=== PATIENT | male | born 1970 | race Caucasian/White ===

== ENCOUNTER 2020-10-01 11:07 | Emergency (ER) | payer OTHER ==
[~2020-10-01] VITALS: Ht 167.6 cm; Wt 68.0 kg
[~2020-10-01 11:07] MED LIST: CYCL10 PO
[2020-10-01] MEDS ORDERED: AMOCLA875 PO (13:19)
== END 2020-10-01 13:21 | disposition home or self-care (01) ==
LOC: ER 11:07
DX: K11.20 Sialoadenitis, unspecified (principal); F17.210 Nicotine dependence, cigarettes, uncomplicated
CPT/HCPCS: 99282

== ENCOUNTER → 2020-12-18 | Outpatient (CLI) | payer OTHER ==
[~2020-12-18] MED LIST changes: +AMOCLA875 PO; +Ropinirole HCl0.5 MG
[2020-12-18 16:49] LABS: BASOPHILS ABSOLUTE AUTO 0.08 K/mm3 (0.00-0.23); BASOPHILS PERCENT AUTO 1 % (0-2); EOSINOPHILS ABSOLUTE AUTO 0.16 K/mm3 (0.00-0.68); EOSINOPHILS PERCENT AUTO 2 % (0-6); Hematocrit 46.8 % (37.0-53.0); Hemoglobin 15.7 g/dL (13.5-17.5); IMMATURE GRAN ABSOLUTE AUTO 0.02 K/mm3 (0.00-0.10); IMMATURE GRAN PERCENT AUTO 0 % (0-1); LYMPHOCYTES ABSOLUTE AUTO 3.87 K/mm3 (0.84-5.20); LYMPHOCYTES PERCENT AUTO 41 % (21-46); MONOCYTES ABSOLUTE AUTO 0.75 K/mm3 (0.16-1.47); MONOCYTES PERCENT AUTO 8 % (4-13); Mean Corpuscular HGB 30.2 pg (26.0-34.0); Mean Corpuscular HGB Conc 33.5 g/dL (31.5-36.5); Mean Corpuscular Volume 90 fL (80-100); Mean Platelet Volume 9.6 fL (9.1-12.4); NEUTROPHILS ABSOLUTE AUTO 4.67 K/mm3 (1.96-9.15); NEUTROPHILS PERCENT AUTO 49 % (41-73); Platelet Count 445 K/mm3 (150-400); RDW Coefficient Variation 14.6 % (11.7-14.2); RDW Standard Deviation 48.6 fL (35.1-46.3); White Blood Cell Count 9.55 K/mm3 (4.00-11.30)
[2020-12-18 17:05] LABS: Alanine Aminotransfer (ALT/SGP 53 U/L (12-78); Albumin, Blood 4.2 g/dL (3.4-5.0); Alk Phos 108 U/L (50-136); Anion Gap 6 mmol/L (6-16); Aspartate Aminotrans (AST/SGOT 23 U/L (12-37); Bilirubin, Total 0.3 mg/dL (0.1-1.0); Blood Urea Nitrogen 14 mg/dL (8-24); Bun/Creatinine Ratio 16.8 (12.0-20.0); CHOL/HDL RATIO 9.9; CO2, Blood 24 mmol/L (21-32); Calcium, Blood 9.1 mg/dL (8.5-10.1); Chloride, Blood 108 mmol/L (98-108); Cholesterol 277 mg/dL (50-200); Creatinine, Blood 0.84 mg/dL (0.60-1.20); Ferritin, Serum 185 ng/mL (26-388); Globulin, Blood 4.4 g/dL (2.2-4.0); Glomerular Filtration Rate >60 (60-); Glucose, Blood 93 mg/dL (70-99); HDL Cholesterol 28 mg/dL (>39); LDL/HDL RATIO 6.8; Low Density Lipoprotein Chol 192 mg/dL (0-110); Potassium, Blood 4.6 mmol/L (3.5-5.5); Sodium, Blood 138 mmol/L (136-145); Total Protein, Blood 8.6 g/dL (6.4-8.2); Triglycerides 287 mg/dL (30-160); Very Low Density Lipoprot Chol 57 mg/dL (6-32)
== END | disposition home or self-care (01) ==
LOC: LAB 15:10 → LAB SHORT 15:10
PROVIDERS: Registered Nurse
DX: D47.3 Essential (hemorrhagic) thrombocythemia (principal); E78.2 Mixed hyperlipidemia; R73.9 Hyperglycemia, unspecified; Z83.3 Family history of diabetes mellitus; Z83.2 Family history of diseases of the blood and blood-forming organs and certain disorders involving the immune mechanism
CPT/HCPCS: 80053; 80061; 82728; 83036; 85025; 85060

== ENCOUNTER → 2021-01-10 | Outpatient (CLI) | payer OTHER | END | disposition home or self-care (01) | LOC: LAB SHORT 16:58 → LAB 16:58 | DX: Z11.59 Encounter for screening for other viral diseases (principal); R35.1 Nocturia | CPT/HCPCS: 86803 ==

== ENCOUNTER 2021-04-28 11:34 | Day surgery (SDC) | payer OTHER ==
--- NOTE | 2021-04-28 12:26 | NUR ---
04/28/21 1226 Cecily Jacobo 1 TRY RIGHT HAND BLEW 2 TRY RIGHT HAND NO FLASH
== END 2021-04-28 13:53 | disposition home or self-care (01) ==
LOC: ORSCSDS 11:34
PROVIDERS: Internal Medicine Gastroenterology
PROC: 0DBG8ZX Excision of Left Large Intestine, Via Natural or Artificial Opening Endoscopic, Diagnostic (ICD-10-PCS; principal; 2021-04-28 13:15)
PROC: 0DBF8ZX Excision of Right Large Intestine, Via Natural or Artificial Opening Endoscopic, Diagnostic (ICD-10-PCS; principal; 2021-04-28 13:15)
PROC: 0DBB8ZX Excision of Ileum, Via Natural or Artificial Opening Endoscopic, Diagnostic (ICD-10-PCS; principal; 2021-04-28 13:15)
PROC: 0DBP8ZX Excision of Rectum, Via Natural or Artificial Opening Endoscopic, Diagnostic (ICD-10-PCS; principal; 2021-04-28 13:15)
DX: Z12.11 Encounter for screening for malignant neoplasm of colon (principal); K63.3 Ulcer of intestine; K64.8 Other hemorrhoids; F41.8 Other specified anxiety disorders; K52.9 Noninfective gastroenteritis and colitis, unspecified; K62.1 Rectal polyp; K21.9 Gastro-esophageal reflux disease without esophagitis; F17.210 Nicotine dependence, cigarettes, uncomplicated; Z79.899 Other long term (current) drug therapy
CPT/HCPCS: 88305; J2704

== ENCOUNTER → 2025-06-27 | Outpatient (CLI) | payer OTHER ==
[2025-06-27 19:27] LABS: BASOPHILS ABSOLUTE AUTO 0.07 K/mm3 (0.00-0.23); BASOPHILS PERCENT AUTO 1 % (0-2); EOSINOPHILS ABSOLUTE AUTO 0.12 K/mm3 (0.00-0.68); EOSINOPHILS PERCENT AUTO 1 % (0-6); Hematocrit 44.7 % (37.0-53.0); Hemoglobin 14.9 g/dL (13.5-17.5); IMMATURE GRAN ABSOLUTE AUTO 0.01 K/mm3 (0.00-0.10); IMMATURE GRAN PERCENT AUTO 0 % (0-1); LYMPHOCYTES ABSOLUTE AUTO 2.12 K/mm3 (0.84-5.20); LYMPHOCYTES PERCENT AUTO 25 % (21-46); MONOCYTES ABSOLUTE AUTO 0.73 K/mm3 (0.16-1.47); MONOCYTES PERCENT AUTO 9 % (4-13); Mean Corpuscular HGB Conc 33.3 g/dL (31.5-36.5); Mean Corpuscular Volume 90 fL (80-100); NEUTROPHILS ABSOLUTE AUTO 5.33 K/mm3 (1.96-9.15); NEUTROPHILS PERCENT AUTO 64 % (41-73); NRBC ABSOLUTE 0.00 K/mm3 (0.00-0.02); NRBC Auto 0.0 /100 WBC (0.0-0.2); Platelet Count 402 K/mm3 (150-400); RDW Coefficient Variation 13.7 % (11.7-14.2); RDW Standard Deviation 45.1 fL (35.1-46.3)
[2025-06-27 19:35] LABS: Alanine Aminotransfer (ALT/SGP 27 U/L (12-78); Albumin, Blood 3.9 g/dL (3.4-5.0); Albumin/Globulin Ratio 0.9 (0.8-1.8); Anion Gap 6 mmol/L (3-11); Aspartate Aminotrans (AST/SGOT 15 U/L (12-37); Bilirubin, Total 0.3 mg/dL (0.1-1.0); Blood Urea Nitrogen 16 mg/dL (8-24); CHOL/HDL RATIO 5.6; CO2, Blood 27 mmol/L (21-32); Calcium, Blood 9.6 mg/dL (8.5-10.1); Chloride, Blood 105 mmol/L (98-108); Cholesterol 169 mg/dL (50-200); Creatinine, Blood 0.70 mg/dL (0.60-1.20); Globulin, Blood 4.3 g/dL (2.2-4.0); Glucose, Blood 105 mg/dL (70-99); HDL Cholesterol 30 mg/dL (>39); LDL/HDL RATIO 3.2; Low Density Lipoprotein Chol 95 mg/dL (0-110); Potassium, Blood 4.0 mmol/L (3.5-5.5); Sodium, Blood 134 mmol/L (136-145); Total Protein, Blood 8.2 g/dL (6.4-8.2); Triglycerides 222 mg/dL (30-160); Very Low Density Lipoprot Chol 44 mg/dL (6-32)
== END ==
LOC: LAB 16:18 → LAB SHORT 16:18
PROVIDERS: Nurse Practitioner Family
DX: E78.5 Hyperlipidemia, unspecified (principal)
CPT/HCPCS: 80053; 80061; 85025